=== PATIENT | female | born 1955 | race Caucasian/White ===

== ENCOUNTER → 2016-07-25 | Outpatient (CLI) | payer OTHER ==
[~2016-07-25] MED LIST: ISOVUE-370 76% 100ML VIAL (Q9967) As Ordered ONE
--- NOTE | 2016-07-26 09:20 | REP ---
CT CHEST WITHOUT CONTRAST: 07/25/2016. Comparison: 01/30/2016. Clinical history: A solitary pulmonary nodule. Technique: Noncontrast CT chest protocol followed. Coronal and sagittal reconstructions provided. Findings: Medial segment right middle lobe is a 8 mm nodule without calcification, it is unchanged. There is a small amount of curvilinear stranding with fibrosis around it in the right middle lobe. There are epicardial fat pads on both sides of the heart. Some minor linear fibrotic changes are also seen in the left lung base, all stable. No other pulmonary nodules are noted. Minor apical parenchymal scarring present. Mild cylindrical bronchiectatic changes in both lower lobes are seen and stable. There is no effusion, calcified pleural plaque or mass. The heart is not enlarged . There is no pericardial thickening or effusion. Small hiatal hernia noted. There were no pathologic sized nodes in the mediastinal or hilar regions. No axillary or supraclavicular mass. Aorta without aneurysm. Bone windows show sternum, manubrium, clavicle heads, humeral heads, scapulae, ribs and spine without acute fractures. There are marginal osteophytes mid thoracic spine and mild kyphosis all stable. Upper abdomen showed a small low density lesion in the spleen anteriorly, unchanged and most likely splenic hemangioma. The liver was not enlarged. That portion of gallbladder included does not show the gallstones seen on the previous study, excluded from the field of view today. Adrenal glands normal. Upper poles of the kidneys intact. Bowel loops unremarkable. Impression: 1. Stable 8 mm nodule medial segment right middle lobe and bibasilar linear fibrotic changes, apical parenchymal pleural fibrotic changes and cylindrical bronchiectasis in the lower lung zones. No other nodule, acute infiltrate, pleural effusion, pleural-based masses or calcifications. Stable chest CT. Signed by Etienne Echeverria MD 07/26/2016 09:25 A
== END ==
LOC: M RAD 16:58
PROVIDERS: ATTEND Internal Medicine Pulmonary Disease
DX: R91.1 Solitary pulmonary nodule (principal)

== ENCOUNTER 2016-11-28 09:06 | Emergency (ER) | payer OTHER ==
[~2016-11-28] VITALS: Ht 165.1 cm; Wt 77.6 kg
[2016-11-28] MEDS ORDERED: ALEV220C2 PO (09:32)
[2016-11-28] MEDS ORDERED: GABA-282 PO (10:12)
[2016-11-28 10:17] VITALS: BP 123/89
== END 2016-11-28 10:22 | disposition home or self-care (01) ==
LOC: M ED 09:47
DX: M54.32 Sciatica, left side (principal)

== ENCOUNTER → 2017-01-23 | Outpatient (CLI) | payer OTHER ==
[~2017-01-23] MED LIST changes: +ALEV220C2 PO; +GABA-282 PO; -ISOVUE-370 76% 100ML VIAL (Q9967) As Ordered ONE
[2017-01-23 08:47] LABS: BASO # 0.1 K/mm3 (0.0-0.2); BASO % 1.2 % (0.0-1.0); EOS # 0.3 K/mm3 (0.0-0.50); LARGE UNSTAINED CELL # 0.2 K/mm3 (0.0-0.4); LARGE UNSTAINED CELL % 2.3 % (0.0-4.0); LYMPH # 2.2 K/mm3 (1.5-4.5); LYMPH % 29.4 % (24.0-44.0); MEAN CORPUSCULAR HEMOGLOBIN 30.7 pg (27.0-33.0); MEAN CORPUSCULAR HGB CONC 34.2 g/dl (32.0-36.5); MEAN CORPUSCULAR VOLUME 89.9 fl (80.0-96.0); MONO # 0.5 K/mm3 (0.0-0.8); NEUTROPHILS # 3.8 K/mm3 (1.8-7.7); PLATELET COUNT, AUTOMATED 268 k/mm3 (150-450); RED CELL DISTRIBUTION WIDTH 13.3 % (11.5-14.5); WHITE BLOOD COUNT 6.8 K/mm3 (4.0-10.0)
[2017-01-23 09:03] LABS: ALBUMIN/GLOBULIN RATIO 1.43 (1.00-1.93); ALKALINE PHOSPHATASE 77 U/L (45-117); ALT/SGPT 25 U/L (12-78); ANION GAP 4 MEQ/L (8-16); AST/SGOT 18 U/L (15-37); BILIRUBIN,TOTAL 0.7 MG/DL (0.2-1.0); BLOOD UREA NITROGEN 17 MG/DL (7-18); CALCIUM LEVEL 8.8 MG/DL (8.8-10.2); CARBON DIOXIDE LEVEL 31 MEQ/L (21-32); CHLORIDE LEVEL 108 MEQ/L (98-107); CHOLESTEROL LEVEL 123 MG/DL (<200); CREATININE FOR GFR 0.72 MG/DL (0.55-1.02); GLOMERULAR FILTRATION RATE > 60.0 (>45); GLUCOSE, FASTING 86 MG/DL (80-110); POTASSIUM SERUM 4.1 MEQ/L (3.5-5.1); SODIUM LEVEL 143 MEQ/L (136-145); TOTAL PROTEIN 6.8 GM/DL (6.4-8.2); TRIGLYCERIDES LEVEL 58 MG/DL (<150)
== END ==
LOC: M LAB 07:53
PROVIDERS: ATTEND Nurse Practitioner Family
DX: Z00.00 Encounter for general adult medical examination without abnormal findings (principal); Z13.220 Encounter for screening for lipoid disorders

== ENCOUNTER 2017-07-21 15:10 | Emergency (ER) | payer OTHER ==
[2017-07-21] MEDS: GLUCAGON FOR INJ 1 MG VIAL (J1610) IV (16:29)
[2017-07-21] MEDS: NS 1,000 ML IV (16:30)
== END 2017-07-21 17:29 | disposition home or self-care (01) ==
LOC: M ED 15:10
DX: R07.0 Pain in throat (principal)
CPT/HCPCS: J1610

== ENCOUNTER → 2017-08-05 | Outpatient (CLI) | payer OTHER | LOC: M RAD 07:58 | DX: R91.1 Solitary pulmonary nodule (principal); K80.20 Calculus of gallbladder without cholecystitis without obstruction; J84.10 Pulmonary fibrosis, unspecified; E04.1 Nontoxic single thyroid nodule; D73.9 Disease of spleen, unspecified | CPT/HCPCS: 71250 ==

== ENCOUNTER → 2017-08-20 | Outpatient (CLI) | payer OTHER | LOC: M PLARAD 10:41 | DX: R91.1 Solitary pulmonary nodule (principal) | CPT/HCPCS: 78815 ==

== ENCOUNTER → 2017-09-03 | Outpatient (REF) | payer OTHER ==
[2017-09-03 12:12] LABS: FREE T4 0.84 NG/DL (0.76-1.46)
[2017-09-03 12:12] LABS: THYROID STIMULATING HORMONE 0.914 uIU/ML (0.358-3.740)
== END ==
LOC: M LABDRAW1 10:46
DX: E04.2 Nontoxic multinodular goiter (principal)
CPT/HCPCS: 84443

== ENCOUNTER → 2017-09-26 | Outpatient (CLI) | payer OTHER ==
[2017-09-26 17:39] LABS: URIC ACID 3.4 MG/DL (2.6-6.0)
[2017-09-26 17:39] LABS: RHEUMATOID FACTOR QUANT < 10.0 IU/ML (<15.0)
[2017-09-30 00:06] LABS: CYCLIC CITRULLINATED PEPTIDE 5 units (0-19)
== END ==
LOC: M LAB 15:48
DX: M19.042 Primary osteoarthritis, left hand (principal); M1A.0720 Idiopathic chronic gout, left ankle and foot, without tophus (tophi); M85.842 Other specified disorders of bone density and structure, left hand
CPT/HCPCS: 73130

== ENCOUNTER → 2017-11-21 | Outpatient (CLI) | payer OTHER | LOC: M RAD 08:02 | DX: R91.1 Solitary pulmonary nodule (principal) | CPT/HCPCS: 71250 ==

== ENCOUNTER → 2018-05-06 | Outpatient (CLI) | payer OTHER | LOC: M LAB 16:23 | DX: Z00.00 Encounter for general adult medical examination without abnormal findings (principal) ==

== ENCOUNTER → 2018-05-07 | Outpatient (CLI) | payer OTHER ==
[2018-05-07 08:59] LABS: ALBUMIN 4.1 GM/DL (3.2-5.2); ALBUMIN/GLOBULIN RATIO 1.46 (1.00-1.93); ALKALINE PHOSPHATASE 93 U/L (45-117); ALT/SGPT 29 U/L (12-78); ANION GAP 7 MEQ/L (8-16); AST/SGOT 23 U/L (7-37); BILIRUBIN,TOTAL 0.5 MG/DL (0.2-1.0); BLOOD UREA NITROGEN 18 MG/DL (7-18); CALCIUM LEVEL 8.7 MG/DL (8.8-10.2); CARBON DIOXIDE LEVEL 28 MEQ/L (21-32); CHLORIDE LEVEL 106 MEQ/L (98-107); CHOLESTEROL LEVEL 117 MG/DL (<200); CHOLESTEROL RISK RATIO 2.294 (<5); CREATININE FOR GFR 0.83 MG/DL (0.55-1.30); GLOMERULAR FILTRATION RATE > 60.0 (>45); GLUCOSE, FASTING 90 MG/DL (70-100); HDL CHOLESTEROL 51 MG/DL (>40); LDL CHOLESTEROL 59 MG/DL (<100); NON-HDL-C 66 MG/DL; SODIUM LEVEL 141 MEQ/L (136-145); TOTAL PROTEIN 6.9 GM/DL (6.4-8.2); TRIGLYCERIDES LEVEL 37 MG/DL (<150)
== END ==
LOC: M LAB 07:58
DX: Z00.00 Encounter for general adult medical examination without abnormal findings (principal); Z13.220 Encounter for screening for lipoid disorders
CPT/HCPCS: 80053

== ENCOUNTER → 2018-06-05 | Outpatient (CLI) | payer OTHER ==
[~2018-06-05] MED LIST changes: +CALC1TAB30 PO; -GABA-282 PO; +GABA-843 PO
--- NOTE | 2018-06-05 08:41 | REP ---
Clinical: Follow up solitary pulmonary nodule. Technique: Axial noncontrast images from the thoracic inlet to the upper abdomen with coronal and sagittal re-formations. Comparison: Examinations dated from 11/21/2017 through 01/30/2016 Findings: Moderate emphysematous changes are appreciated along with right middle lobe and lingular scarring and mild bronchiectasis. Solitary noncalcified pulmonary nodule in the right middle lobe measures 10 mm maximal diameter and appears relatively stable. The no further acute consolidation, significant nodule or mass lesion appreciated. No pleural effusion. No pneumothorax. Tracheobronchial tree is patent. Mediastinal and hilar adenopathy cannot be evaluated due to the lack of intravenous contrast material. The mediastinum is otherwise relatively normal with normal appearance to the thoracic aorta, pulmonary vasculature and heart/pericardium. Prominent bilateral axillary and mammary lymph nodes are identified bilaterally. Surrounding musculoskeletal structures without focal osseous abnormality. Limited upper abdomen demonstrates cholelithiasis along with normal bilateral adrenal glands. Impression: 1. 10 mm solitary noncalcified nodule in the right middle lobe similar to prior examinations. 2. Moderate emphysematous changes with mild bronchiectasis and scattered scarring. 3. No new, acute mediastinal or pleuroparenchymal process appreciated. 4. Cholelithiasis Electronically Signed by Ayush Gomes MD 06/05/2018 08:32 A
== END ==
LOC: M RAD 08:05
PROVIDERS: ATTEND Internal Medicine Pulmonary Disease
DX: R91.1 Solitary pulmonary nodule (principal); J43.9 Emphysema, unspecified; K80.20 Calculus of gallbladder without cholecystitis without obstruction

== ENCOUNTER → 2018-06-17 | Outpatient (CLI) | payer OTHER ==
--- NOTE | 2018-06-17 16:28 | REPMRS ---
Patient History The patient states she had a clinical breast exam in 06/28 Family history of breast cancer at age 50 or over in maternal grandmother. Digital Woman Screen Mammo: June 17, 2018 - Exam #: [id number] Bilateral CC and MLO view(s) were taken. Technologist: Imelda Washburn, Technologist Prior study comparison: April 17, 2017, digital woman screen mammo performed at [facility]. April 10, 2016, digital woman screen mammo performed at [facility]. March 02, 2015, digital woman screen mammo performed at [facility]. FINDINGS: There are scattered fibroglandular densities. There are stable benign breast nodules bilaterally. There is a moderate amount of residual fibroglandular tissue which is fairly symmetric. There is no interval development of dominant mass, architectural distortion, or clustered microcalcification typical of malignancy. There has been no change in the appearance of the mammogram from the prior studies. 3-D tomosynthesis shows no additional findings. Assessment: BI-RADS/ACR category 2 mammogram. Benign finding(s). Recommendation Routine screening mammogram of both breasts in 1 year (for women over age 40). This patient's Lifetime Breast Cancer RIsk is estimated at 10.0 %. This mammogram was interpreted with the aid of an FDA-approved computer-aided dectection system. Electronically Signed By: Uriah Michelle MD 06/17/18 [id number]
== END ==
LOC: M WHC 13:41
PROVIDERS: ATTEND Nurse Practitioner Family
DX: Z12.31 Encounter for screening mammogram for malignant neoplasm of breast (principal)

== ENCOUNTER → 2018-06-17 | Outpatient (REF) | payer OTHER ==
[2018-06-20 16:26] LABS: HPV HYBRID CAPTURE II Negative (Negative)
== END ==
LOC: M SFHCWAGY 14:58
PROVIDERS: ATTEND Nurse Practitioner Women's Health
DX: Z12.4 Encounter for screening for malignant neoplasm of cervix (principal)

== ENCOUNTER → 2019-06-11 | Outpatient (CLI) | payer OTHER ==
[2019-06-11 11:06] LABS: BASO # 0.1 10^3/uL (0.0-0.2); BASO % 0.7 % (0.0-1.0); EOS # 0.3 10^3/uL (0.0-0.5); EOS % 3.1 % (0.0-3.0); HEMATOCRIT 37.4 % (36.0-47.0); HEMOGLOBIN 11.4 g/dl (12.0-15.5); LYMPH # 3.2 10^3/uL (1.5-5.0); LYMPH % 38.7 % (24.0-44.0); MEAN CORPUSCULAR HEMOGLOBIN 26.8 pg (27.0-33.0); MEAN CORPUSCULAR HGB CONC 30.5 g/dl (32.0-36.5); MONO # 0.7 10^3/uL (0.0-0.8); MONO % 8.7 % (0.0-5.0); NEUTROPHILS % 48.4 % (36.0-66.0); PLATELET COUNT, AUTOMATED 260 10^3/uL (150-450); RED BLOOD COUNT 4.25 10^6/uL (4.00-5.40); WHITE BLOOD COUNT 8.2 10^3/uL (4.0-10.0)
[2019-06-11 11:32] LABS: ALBUMIN 3.8 GM/DL (3.2-5.2); ALT/SGPT 26 U/L (12-78); BILIRUBIN,TOTAL 0.6 MG/DL (0.2-1.0); BLOOD UREA NITROGEN 17 MG/DL (7-18); CALCIUM LEVEL 8.9 MG/DL (8.8-10.2); CARBON DIOXIDE LEVEL 28 MEQ/L (21-32); CHLORIDE LEVEL 109 MEQ/L (98-107); CHOLESTEROL LEVEL 126 MG/DL (<200); CHOLESTEROL RISK RATIO 2.333 (<5); GLOMERULAR FILTRATION RATE > 60.0 (>45); GLUCOSE, FASTING 78 MG/DL (70-100); HDL CHOLESTEROL 54 MG/DL (>40); LDL CHOLESTEROL 56 MG/DL (<100); NON-HDL-C 72 MG/DL; POTASSIUM SERUM 4.3 MEQ/L (3.5-5.1); SODIUM LEVEL 143 MEQ/L (136-145); TOTAL PROTEIN 6.8 GM/DL (6.4-8.2); TRIGLYCERIDES LEVEL 78 MG/DL (<150)
== END ==
LOC: M PLALAB 08:08
PROVIDERS: ATTEND Nurse Practitioner Family
DX: Z00.00 Encounter for general adult medical examination without abnormal findings (principal); Z13.220 Encounter for screening for lipoid disorders; E55.9 Vitamin D deficiency, unspecified

== ENCOUNTER → 2019-06-22 | Outpatient (CLI) | payer OTHER ==
--- NOTE | 2019-06-22 09:18 | REPMRS ---
Patient History The patient states she had a clinical breast exam in 2019. Family history of breast cancer at age 50 or over in maternal grandmother. Digital Woman Screen Mammo: June 22, 2019 - Exam #: [id number] Bilateral CC and MLO view(s) were taken. Technologist: Francisca Hernandez, Technologist Prior study comparison: June 17, 2018, bilateral digital woman screen mammo performed at [facility]. April 17, 2017, digital woman screen mammo performed at [facility]. April 10, 2016, digital woman screen mammo performed at [facility]. FINDINGS: The breast tissue is heterogeneously dense. This may lower the sensitivity of mammography. There is a stable well-circumscribed nodule projecting in the upper outer quadrant of each breast, one on each side. These are unchanged from multiple prior studies. There is a moderate amount of heterogeneously dense fibroglandular tissue which is fairly symmetric. There is no interval development of dominant mass, architectural distortion, or grouped microcalcification typical of malignancy. There has been no change in the appearance of the mammogram from the prior studies. 3-D tomosynthesis shows no additional findings. Assessment: BI-RADS/ACR category 2 mammogram. Benign Findings. Recommendation Routine screening mammogram of both breasts in 1 year (for women over age 40). This patient's Lifetime Breast Cancer RIsk is estimated at 9.6 %. This mammogram was interpreted with the aid of an FDA-approved computer-aided dectection system. Electronically Signed By: Uriah Michelle MD 06/22/19 [id number]
== END ==
LOC: M WHC 08:33
PROVIDERS: ATTEND Nurse Practitioner Women's Health
DX: Z12.31 Encounter for screening mammogram for malignant neoplasm of breast (principal); Z80.3 Family history of malignant neoplasm of breast; N63.11 Unspecified lump in the right breast, upper outer quadrant; N63.22 Unspecified lump in the left breast, upper inner quadrant

== ENCOUNTER → 2019-07-15 | Outpatient (CLI) | payer OTHER ==
--- NOTE | 2019-07-22 14:19 | DEXA ---
AP SPINE L1 - L4 1.059 -1.1 0.5 LT FEMUR TOTAL 0.914 -0.7 0.4 LT NECK 0.886 -1.1 0.3 RT FEMUR TOTAL 0.870 -1.1 0.1 RT NECK 0.910 -0.9 0.5 TOTAL BODY TOTAL OTHER COMMENTS: There is low bone density of the spine and hips. The density of the spine is increased 0.9% since 01/19/2014. The density of the left hip has decreased 2.1% since 01/19/2014. The density of the right hip has decreased 4.6% since 01/19/2014. FOLLOW-UP: Recommendation for the next bone density exam: 2 years. SARAI
== END ==
LOC: M WHC 07:59
PROVIDERS: ATTEND Nurse Practitioner Family
DX: M85.851 Other specified disorders of bone density and structure, right thigh (principal); M85.852 Other specified disorders of bone density and structure, left thigh; M85.88 Other specified disorders of bone density and structure, other site

== ENCOUNTER → 2020-06-27 | Outpatient (CLI) | payer MEDICARE ==
[~2020-06-27] MED LIST changes: +GABA-282 PO; -GABA-843 PO
--- NOTE | 2020-06-27 09:21 | REPMRS ---
Patient History The patient states she has not had a clinical breast exam in over a year. Family history of breast cancer at age 50 or over in maternal grandmother. 3D TOMOSYNTHESIS WAS PERFORMED. [facility]%. Volpara breast density b. Digital Woman Screen Mammo: June 27, 2020 - Exam #: [id number] Bilateral CC and MLO view(s) were taken. Technologist: Francisca Hernandez, Technologist Prior study comparison: June 22, 2019, bilateral digital woman screen mammo performed at [facility]. June 17, 2018, bilateral digital woman screen mammo performed at [facility]. FINDINGS: There are scattered fibroglandular densities. There is a fairly symmetric fibroglandular pattern in both breasts. There has been no interval development of masses, areas of architectural distortion or clusters of microcalcifications typical of malignancy.[A nodule in the lateral aspect of each breast is stable. No significant changes when compared with prior studies. Assessment: BI-RADS/ACR category 2 mammogram. Benign Findings. Recommendation Routine screening mammogram of both breasts in 1 year (for women over age 40). This mammogram was interpreted with the aid of an FDA-approved computer-aided dectection system. Electronically Signed By: Chung White MD 06/27/20 [id number]
== END ==
LOC: M WHC 08:33
PROVIDERS: ATTEND Nurse Practitioner Women's Health
DX: Z12.31 Encounter for screening mammogram for malignant neoplasm of breast (principal)

== ENCOUNTER 2020-10-07 15:05 | Emergency (ER) | payer OTHER, MEDICARE ==
[~2020-10-07] VITALS: Ht 165.1 cm; Wt 81.8 kg
--- NOTE | 2020-10-07 15:28 | REP ---
INDICATION: Fall injury. COMPARISON: None. TECHNIQUE: Helical scanning is acquired. 5 mm axial images were reformatted. Coronal MPR images were generated. 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 Bone window settings show a small air-fluid level in the left maxillary sinus and partial opacification of the left ethmoid air cells. The bony calvarium is intact. No skull fracture is seen. There is a scalp hematoma in the left side of the vertex superiorly. No intraorbital abnormality is seen. On soft tissue window settings, there is mild generalized volume loss. Lateral, 3rd, and 4th ventricles are normal in size and position. Minimal small vessel changes are seen in the periventricular white matter of the frontal lobes. There is no evidence of intracranial hemorrhage. No infarct, extra-axial fluid collection, or midline shift is seen. No intracranial mass lesion is observed. IMPRESSION: Minimal generalized volume loss and small vessel changes. Left vertex scalp hematoma. No skull fracture or intracranial injury. Mild paranasal sinus changes.. <Electronically signed by Uriah Michelle > 10/07/20 [id number]
--- NOTE | 2020-10-07 15:35 | REP ---
INDICATION: Fall injury. COMPARISON: CT chest 07/25/2016. TECHNIQUE: CT cervical spine performed in the axial plane, with sagittal and coronal reconstruction images performed. FINDINGS: There is no acute compression fracture or malalignment. There is no prevertebral soft tissue swelling. There is normal cervical lordosis. There is no abnormal density in the spinal canal.There is mild spurring of C4 through C7. There is mild disc space narrowing and subchondral sclerosis at C3-4 through C6-7. Bilateral thyroid nodules are present which appear to have mildly increased in size compared to a prior CT of the chest 07/25/2016. IMPRESSION: No evidence of acute fracture or dislocation.Mild diffuse degenerative changes. Bilateral thyroid nodules appear to have mildly increased in size since prior CT chest 07/25/2016. Recommend follow-up nonemergent thyroid ultrasound. <Electronically signed by Chung White > 10/07/20 [id number]
[2020-10-07 15:40] LABS: HEMATOCRIT 36.4 % (36.0-47.0); MEAN CORPUSCULAR HEMOGLOBIN 29.9 pg (27.0-33.0); MEAN CORPUSCULAR VOLUME 90.8 fl (80.0-96.0); PLATELET COUNT, AUTOMATED 232 10^3/uL (150-450); RED BLOOD COUNT 4.01 10^6/uL (4.00-5.40); WHITE BLOOD COUNT 9.8 10^3/uL (4.0-10.0)
[2020-10-07] MEDS ORDERED: OMEP-221 PO (15:42)
[2020-10-07 15:55] LABS: BLOOD UREA NITROGEN 18 MG/DL (7-18); CALCIUM LEVEL 8.6 MG/DL (8.8-10.2); CARBON DIOXIDE LEVEL 27 MEQ/L (21-32); CHLORIDE LEVEL 112 MEQ/L (98-107); CREATININE FOR GFR 0.78 MG/DL (0.55-1.30); GLOMERULAR FILTRATION RATE > 60.0 (>45); GLUCOSE, FASTING 104 MG/DL (70-100); POTASSIUM SERUM 3.6 MEQ/L (3.5-5.1); SODIUM LEVEL 143 MEQ/L (136-145)
[2020-10-07] MEDS ORDERED: LIDOCAINE 2% W/EPINEPHRINE 20ML VIAL **PRES FREE INJ ONE (16:35)
[2020-10-07 17:10] VITALS: BP 171/99
--- NOTE | 2020-10-08 07:15 | ED PDOC ---
Post-Departure Follow-Up ct c spine faxed to arnaldo quiroz for fu Mack Whalen MD October 08, 2020 07:15
== END 2020-10-07 17:21 | disposition home or self-care (01) ==
LOC: EDBD 15:05 → M ED 15:05
DX: S01.01XA Laceration without foreign body of scalp, initial encounter (principal); S00.03XA Contusion of scalp, initial encounter; S06.0X1A Concussion with loss of consciousness of 30 minutes or less, initial encounter; W19.XXXA Unspecified fall, initial encounter; Y92.89 Other specified places as the place of occurrence of the external cause; Y93.9 Activity, unspecified; Y99.0 Civilian activity done for income or pay; Z90.49 Acquired absence of other specified parts of digestive tract; Z93.3 Colostomy status; M54.5 Low back pain; E04.1 Nontoxic single thyroid nodule; Z79.899 Other long term (current) drug therapy

== ENCOUNTER → 2021-01-11 | Outpatient (CLI) | payer MEDICARE, OTHER ==
[~2021-01-11] MED LIST changes: +OMEP-221 PO
--- NOTE | 2021-01-11 16:17 | REP ---
INDICATION: PAIN IN RIGHT FOOT. COMPARISON: None. TECHNIQUE: Two views FINDINGS: There is a large retrocalcaneal heel spur. There is no fracture or destructive osseous lesion. IMPRESSION: Chronic changes as described above. <Electronically signed by Soy Smith > 01/11/21 [id number]
--- NOTE | 2021-01-11 16:40 | REP ---
INDICATION: PAIN IN RIGHT FOOT. COMPARISON: None. TECHNIQUE: AP and frogleg lateral views of the left hip were obtained. FINDINGS: There is no evidence of arthropathy of the left hip. There is no evidence of subluxation or dislocation of the femoral head. There is no evidence of fracture of the proximal femur. The adjacent bony pelvis is unremarkable. There are no soft tissue abnormality. IMPRESSION: Normal left hip. <Electronically signed by Carlos Medrano > 01/11/21 [id number]
== END ==
LOC: M PLAIMG 15:33
PROVIDERS: ATTEND Nurse Practitioner Family
DX: M77.31 Calcaneal spur, right foot (principal); M79.671 Pain in right foot; M25.552 Pain in left hip

== ENCOUNTER 2021-01-30 12:15 | Outpatient (RCR) | payer MEDICARE | END 2021-02-07 | LOC: M PT 12:15 | PROVIDERS: ATTEND Nurse Practitioner Family | DX: M25.552 Pain in left hip (principal) ==

== ENCOUNTER 2021-03-02 15:15 | Outpatient (RCR) | payer MEDICARE | END 2021-03-09 | LOC: M PT 15:15 | PROVIDERS: ATTEND Nurse Practitioner Family | DX: M25.552 Pain in left hip (principal) ==

== ENCOUNTER 2021-05-20 12:30 | Emergency (ER) | payer MEDICARE ==
[~2021-05-20] VITALS: Ht 165.1 cm; Wt 79.5 kg
[2021-05-20 12:30] VITALS: BP 141/76
[~2021-05-20 12:30] MED LIST changes: -OMEP-221 PO; +OMEP40CA5 PO
[2021-08-03] MEDS ORDERED: FIBE625T PO (16:06)
[2021-08-03] MEDS ORDERED: NAPR220C14 PO (16:06)
== END 2021-05-20 15:12 | disposition left against medical advice (07) ==
LOC: M ED 12:30
DX: Z53.21 Procedure and treatment not carried out due to patient leaving prior to being seen by health care provider (principal)

== ENCOUNTER → 2021-07-17 | Outpatient (CLI) | payer MEDICARE, SELFPAY | LOC: M PLAIMG 08:04 | PROVIDERS: ATTEND Orthopaedic Surgery | DX: M51.36 Other intervertebral disc degeneration, lumbar region (principal); M51.26 Other intervertebral disc displacement, lumbar region ==

== ENCOUNTER → 2021-07-19 | Outpatient (CLI) | payer MEDICARE, SELFPAY | LOC: M WHC 11:28 | PROVIDERS: ATTEND Nurse Practitioner Family | DX: N64.4 Mastodynia (principal); N60.01 Solitary cyst of right breast; N63.10 Unspecified lump in the right breast, unspecified quadrant | CPT/HCPCS: 76642; 77066; G0279 ==

== ENCOUNTER → 2021-08-03 | Outpatient (CLI) | payer MEDICARE ==
[~2021-08-03] MED LIST changes: +FIBE625T PO; +NAPR220C14 PO
[2021-08-03 15:41] VITALS: BP 120/70
== END ==
LOC: M WHCPRO 13:58
PROVIDERS: ATTEND Nurse Practitioner Family
DX: N60.21 Fibroadenosis of right breast (principal); N63.41 Unspecified lump in right breast, subareolar

== ENCOUNTER → 2021-08-22 | Outpatient (CLI) | payer MEDICARE ==
[2021-08-22 15:36] LABS: BASO # 0.1 10^3/uL (0.0-0.2); BASO % 0.6 % (0.0-1.0); EOS # 0.3 10^3/uL (0.0-0.5); HEMATOCRIT 39.4 % (36.0-47.0); HEMOGLOBIN 13.2 g/dl (12.0-15.5); LYMPH # 4.4 10^3/uL (1.5-5.0); LYMPH % 45.3 % (24.0-44.0); MEAN CORPUSCULAR HEMOGLOBIN 30.1 pg (27.0-33.0); MEAN CORPUSCULAR HGB CONC 33.5 g/dl (32.0-36.5); MEAN CORPUSCULAR VOLUME 89.7 fl (80.0-96.0); MONO # 0.7 10^3/uL (0.0-0.8); NEUTROPHILS # 4.3 10^3/uL (1.5-8.5); NEUTROPHILS % 43.9 % (36.0-66.0); PLATELET COUNT, AUTOMATED 255 10^3/uL (150-450); RED BLOOD COUNT 4.39 10^6/uL (4.00-5.40); WHITE BLOOD COUNT 9.8 10^3/uL (4.0-10.0)
[2021-08-22 16:02] LABS: ALBUMIN 4.1 GM/DL (3.2-5.2); ALT/SGPT 29 U/L (12-78); BILIRUBIN,TOTAL 0.6 MG/DL (0.2-1.0); BLOOD UREA NITROGEN 19 MG/DL (7-18); CALCIUM LEVEL 8.7 MG/DL (8.8-10.2); CARBON DIOXIDE LEVEL 29 MEQ/L (21-32); CHLORIDE LEVEL 112 MEQ/L (98-107); CHOLESTEROL LEVEL 120 MG/DL (<200); CHOLESTEROL RISK RATIO 2.068 (<5); CREATININE FOR GFR 0.79 MG/DL (0.55-1.30); GLOMERULAR FILTRATION RATE > 60.0 (>45); GLUCOSE, FASTING 94 MG/DL (70-100); HDL CHOLESTEROL 58 MG/DL (>40); LDL CHOLESTEROL 46 MG/DL (<100); NON-HDL-C 62 MG/DL; SODIUM LEVEL 144 MEQ/L (136-145); TRIGLYCERIDES LEVEL 78 MG/DL (<150)
[2021-08-22 16:11] LABS: TOTAL 25(OH) VITAMIN D 29.3 NG/ML (30.0-100.0)
[2021-08-22 16:56] LABS: HEMOGLOBIN A1c 5.2 %
== END ==
LOC: M PLALAB 12:20
PROVIDERS: ATTEND Nurse Practitioner Family
DX: E55.9 Vitamin D deficiency, unspecified (principal); Z13.220 Encounter for screening for lipoid disorders; Z13.228 Encounter for screening for other metabolic disorders; Z79.899 Other long term (current) drug therapy

== ENCOUNTER → 2021-08-25 | Outpatient (CLI) | payer MEDICARE ==
[2021-08-25 12:53] LABS: PLATELET COUNT, AUTOMATED 247 10^3/uL (150-450)
[2021-08-25 13:08] LABS: INR 1.06; PROTHROMBIN TIME 14.2 SECONDS (12.7-14.5)
[2021-08-25 13:09] LABS: PARTIAL THROMBOPLASTIN TIME 31.4 SECONDS (25.9-37.0)
== END ==
LOC: M LAB 11:42
PROVIDERS: ATTEND Physical Medicine & Rehabilitation
DX: M48.061 Spinal stenosis, lumbar region without neurogenic claudication (principal); Z79.01 Long term (current) use of anticoagulants

== ENCOUNTER → 2022-09-01 | Outpatient (CLI) | payer MEDICARE ==
[2022-09-01 09:31] LABS: BASO # 0.1 10^3/uL (0.0-0.2); BASO % 0.7 % (0.0-1.0); EOS # 0.2 10^3/uL (0.0-0.5); EOS % 2.3 % (0.0-3.0); HEMATOCRIT 41.1 % (36.0-47.0); HEMOGLOBIN 13.2 g/dl (12.0-15.5); LYMPH # 4.8 10^3/uL (1.5-5.0); LYMPH % 48.3 % (24.0-44.0); MEAN CORPUSCULAR HEMOGLOBIN 29.3 pg (27.0-33.0); MEAN CORPUSCULAR HGB CONC 32.1 g/dl (32.0-36.5); MEAN CORPUSCULAR VOLUME 91.3 fl (80.0-96.0); MONO # 0.7 10^3/uL (0.0-0.8); MONO % 7.4 % (2.0-8.0); NEUTROPHILS # 4.1 10^3/uL (1.5-8.5); NEUTROPHILS % 41.1 % (36.0-66.0); PLATELET COUNT, AUTOMATED 230 10^3/uL (150-450); WHITE BLOOD COUNT 9.9 10^3/uL (4.0-10.0)
[2022-09-01 10:24] LABS: ALBUMIN 3.9 G/DL (3.2-5.2); ALKALINE PHOSPHATASE 97 U/L (46-116); ALT/SGPT 24 U/L (7.0-40); AST/SGOT 19 U/L (<34); BILIRUBIN,TOTAL 0.7 MG/DL (0.3-1.2); BLOOD UREA NITROGEN 24 MG/DL (9-23); CALCIUM LEVEL 8.9 MG/DL (8.3-10.6); CARBON DIOXIDE LEVEL 30 MMOL/L (20-31); CHLORIDE LEVEL 107 MMOL/L (98-107); CHOLESTEROL LEVEL 114 MG/DL (<200); CHOLESTEROL RISK RATIO 2.17 (<5); CREATININE FOR GFR 0.69 MG/DL (0.55-1.30); GLOMERULAR FILTRATION RATE > 60.0 (>45); GLUCOSE, FASTING 82 MG/DL (74-106); HDL CHOLESTEROL 52.3 MG/DL (>40); LDL CHOLESTEROL 49.9 MG/DL (<100); NON-HDL-C 61.7 MG/DL; POTASSIUM SERUM 4.2 MMOL/L (3.5-5.1); SODIUM LEVEL 142 MMOL/L (136-145); TOTAL 25(OH) VITAMIN D 38.6 NG/ML (20.0-100.0); TOTAL PROTEIN 6.5 G/DL (5.7-8.2); TRIGLYCERIDES LEVEL 59 MG/DL (<150)
== END ==
LOC: M LAB 08:49
PROVIDERS: ATTEND Nurse Practitioner Family
DX: Z00.00 Encounter for general adult medical examination without abnormal findings (principal); E55.9 Vitamin D deficiency, unspecified; Z13.220 Encounter for screening for lipoid disorders

== ENCOUNTER → 2022-09-03 | Outpatient (CLI) | payer MEDICARE | LOC: M WHC 14:13 | PROVIDERS: ATTEND Nurse Practitioner Family | DX: Z12.31 Encounter for screening mammogram for malignant neoplasm of breast (principal); N63.10 Unspecified lump in the right breast, unspecified quadrant; N63.20 Unspecified lump in the left breast, unspecified quadrant; M85.89 Other specified disorders of bone density and structure, multiple sites ==

== ENCOUNTER 2022-10-28 14:35 | Emergency (ER) | payer MEDICARE ==
[~2022-10-28] VITALS: Ht 165.1 cm; Wt 82.4 kg
[2022-10-28 14:36] VITALS: BP 144/90
== END 2022-10-28 15:15 | disposition home or self-care (01) ==
LOC: M ED 14:35
DX: K22.2 Esophageal obstruction (principal); K21.9 Gastro-esophageal reflux disease without esophagitis; Z79.899 Other long term (current) drug therapy

== ENCOUNTER 2023-02-07 13:19 | Emergency (ER) | payer MEDICARE ==
[~2023-02-07] VITALS: Ht 165.1 cm; Wt 82.2 kg
[2023-02-07 15:47] VITALS: BP 166/80; TEMP 98.3; O2SAT 98
== END 2023-02-07 15:59 | disposition home or self-care (01) ==
LOC: M ED 13:19
DX: T18.128A Food in esophagus causing other injury, initial encounter (principal); R13.10 Dysphagia, unspecified

== ENCOUNTER 2023-02-07 23:40 | Emergency (ER) | payer MEDICARE ==
[2023-02-07 23:41] VITALS: BP 162/92; TEMP 97.3; O2SAT 99
== END 2023-02-08 04:57 | disposition left against medical advice (07) ==
LOC: M ED 23:40
DX: Z53.21 Procedure and treatment not carried out due to patient leaving prior to being seen by health care provider (principal)

== ENCOUNTER → 2023-04-10 | Outpatient (CLI) | payer MEDICARE ==
[~2023-04-10] MED LIST changes: +E-Z-GAS II EFFERVESCENT PACKET (SODIUM BICARB./CITRIC ACID/SIMETHICONE) As Ordered ONE; +E-Z-HD 98% w/w 340GM SUSP BTL As Ordered ONE; +E-Z-PAQUE 96% w/w SUSP 176GM BTL As Ordered ONE
== END ==
LOC: M RAD 09:07
PROVIDERS: ATTEND Physician Assistant Medical
DX: R13.10 Dysphagia, unspecified (principal); K21.9 Gastro-esophageal reflux disease without esophagitis; K44.9 Diaphragmatic hernia without obstruction or gangrene; K22.89 Other specified disease of esophagus

== ENCOUNTER 2023-05-06 11:55 | Day surgery (SDC) | payer MEDICARE ==
[~2023-05-06] VITALS: Ht 165.1 cm; Wt 82.6 kg
[~2023-05-06 11:55] MED LIST changes: +ALEV220T22 PO; +CETI-24 PO; -E-Z-GAS II EFFERVESCENT PACKET (SODIUM BICARB./CITRIC ACID/SIMETHICONE) As Ordered ONE; -E-Z-HD 98% w/w 340GM SUSP BTL As Ordered ONE; -E-Z-PAQUE 96% w/w SUSP 176GM BTL As Ordered ONE; +NS 1,000 ML IV ONE
[2023-05-06] MEDS ORDERED: propofoL 200 MG/20 ML VIAL As Ordered ONE ×2 (13:15→13:16)
[2023-05-06] MEDS ORDERED: LIDOCAINE 2% 100MG/5ML SDV (FOR ANES.) As Ordered ONE (13:16)
[2023-05-06] MEDS ORDERED: fentaNYL 100 MCG/2 ML INJECTION As Ordered ONE (13:48)
[2023-05-06 14:10] VITALS: TEMP 99.8
[2023-05-06 14:25] VITALS: BP 156/82; O2SAT 96
== END 2023-05-06 14:42 | disposition home or self-care (01) ==
LOC: M OPP 11:55
PROVIDERS: ATTEND Internal Medicine Gastroenterology
DX: R93.3 Abnormal findings on diagnostic imaging of other parts of digestive tract (principal); R13.10 Dysphagia, unspecified; K22.2 Esophageal obstruction; K20.90 Esophagitis, unspecified without bleeding; Z79.899 Other long term (current) drug therapy
CPT/HCPCS: 43239; 43249; 88305; J3010

== ENCOUNTER → 2023-05-13 | Outpatient (CLI) | payer MEDICARE ==
[~2023-05-13] MED LIST changes: +BARIUM SULFATE 700 MG TABLET (E-Z-DISK) As Ordered ONE; +E-Z-PAQUE 96% w/w SUSP 176GM BTL As Ordered ONE; -NS 1,000 ML IV ONE; +VARIBAR NECTAR 40% w/v 240ML SUSP BTL As Ordered ONE; +VARIBAR PUDDING 40% w/v 230ML TUBE As Ordered ONE
== END ==
LOC: M RAD 10:40
PROVIDERS: ATTEND Physician Assistant Medical
DX: R13.10 Dysphagia, unspecified (principal); R93.3 Abnormal findings on diagnostic imaging of other parts of digestive tract

== ENCOUNTER → 2023-09-02 | Outpatient (CLI) | payer MEDICARE, MEDICAID ==
[~2023-09-02] MED LIST changes: -BARIUM SULFATE 700 MG TABLET (E-Z-DISK) As Ordered ONE; -E-Z-PAQUE 96% w/w SUSP 176GM BTL As Ordered ONE; -VARIBAR NECTAR 40% w/v 240ML SUSP BTL As Ordered ONE; -VARIBAR PUDDING 40% w/v 230ML TUBE As Ordered ONE
[2023-09-02 14:51] LABS: BASO # 0.1 10^3/uL (0.0-0.2); BASO % 0.7 % (0.0-1.0); EOS # 0.3 10^3/uL (0.0-0.5); EOS % 2.5 % (0.0-3.0); HEMATOCRIT 41.5 % (36.0-47.0); HEMOGLOBIN 13.4 g/dl (12.0-15.5); LYMPH # 6.3 10^3/uL (1.5-5.0); LYMPH % 51.5 % (24.0-44.0); MEAN CORPUSCULAR HEMOGLOBIN 30.2 pg (27.0-33.0); MEAN CORPUSCULAR HGB CONC 32.3 g/dl (32.0-36.5); MEAN CORPUSCULAR VOLUME 93.7 fl (80.0-96.0); MONO % 8.2 % (2.0-8.0); NEUTROPHILS # 4.5 10^3/uL (1.5-8.5); NEUTROPHILS % 36.4 % (36.0-66.0); PLATELET COUNT, AUTOMATED 279 10^3/uL (150-450); RED BLOOD COUNT 4.43 10^6/uL (4.00-5.40); WHITE BLOOD COUNT 12.3 10^3/uL (4.0-10.0)
[2023-09-02 15:20] LABS: ALBUMIN 3.7 G/DL (3.2-5.2); ALKALINE PHOSPHATASE 90 U/L (46-116); ALT/SGPT 31 U/L (7.0-40); AST/SGOT 22 U/L (<34); BILIRUBIN,TOTAL 0.3 MG/DL (0.3-1.2); BLOOD UREA NITROGEN 22 MG/DL (9-23); CALCIUM LEVEL 8.9 MG/DL (8.3-10.6); CARBON DIOXIDE LEVEL 29 MMOL/L (20-31); CHLORIDE LEVEL 109 MMOL/L (98-107); CHOLESTEROL LEVEL 110 MG/DL (<200); CREATININE FOR GFR 0.77 MG/DL (0.55-1.30); FREE T4 1.01 NG/DL (0.89-1.76); GLOMERULAR FILTRATION RATE > 60.0 (>45); GLUCOSE, FASTING 74 MG/DL (74-106); HDL CHOLESTEROL 34.3 MG/DL (>40); LDL CHOLESTEROL 52.3 MG/DL (<100); NON-HDL-C 75.7 MG/DL; POTASSIUM SERUM 4.3 MMOL/L (3.5-5.1); SODIUM LEVEL 142 MMOL/L (136-145); THYROID STIMULATING HORMONE 0.322 uIU/ML (0.55-4.78); TOTAL PROTEIN 6.5 G/DL (5.7-8.2); TRIGLYCERIDES LEVEL 117 MG/DL (<150)
[2023-09-02 15:21] LABS: TOTAL 25(OH) VITAMIN D 54.6 NG/ML (20.0-100.0)
== END ==
LOC: M PLALAB 11:18
PROVIDERS: ATTEND Nurse Practitioner Family
DX: M51.36 Other intervertebral disc degeneration, lumbar region (principal); N20.0 Calculus of kidney; E55.9 Vitamin D deficiency, unspecified; R23.2 Flushing; M54.42 Lumbago with sciatica, left side; Z13.220 Encounter for screening for lipoid disorders; Z13.1 Encounter for screening for diabetes mellitus; Z79.899 Other long term (current) drug therapy

== ENCOUNTER → 2023-09-05 | Outpatient (CLI) | payer MEDICARE, MEDICAID | LOC: M WHC 11:05 | PROVIDERS: ATTEND Nurse Practitioner Family | DX: Z12.31 Encounter for screening mammogram for malignant neoplasm of breast (principal); R92.333 Mammographic heterogeneous density, bilateral breasts ==

== ENCOUNTER → 2023-10-11 | Outpatient (CLI) | payer MEDICARE, MEDICAID | LOC: M RAD 15:22 | PROVIDERS: ATTEND Nurse Practitioner Family | DX: E04.2 Nontoxic multinodular goiter (principal) ==

== ENCOUNTER → 2024-03-27 | Outpatient (CLI) | payer MEDICARE ==
[~2024-03-27] MED LIST changes: +GABA-1172 PO; -GABA-282 PO
[2024-03-27 09:36] LABS: BASO # 0.1 10^3/uL (0.0-0.2); BASO % 0.5 % (0.0-1.0); EOS # 0.3 10^3/uL (0.0-0.5); EOS % 2.5 % (0.0-3.0); HEMATOCRIT 40.2 % (36.0-47.0); HEMOGLOBIN 13.5 g/dl (12.0-15.5); LYMPH # 7.1 10^3/uL (1.5-5.0); MEAN CORPUSCULAR HEMOGLOBIN 30.8 pg (27.0-33.0); MEAN CORPUSCULAR HGB CONC 33.6 g/dl (32.0-36.5); MEAN CORPUSCULAR VOLUME 91.6 fl (80.0-96.0); MONO # 0.7 10^3/uL (0.0-0.8); MONO % 5.6 % (2.0-8.0); NEUTROPHILS # 3.8 10^3/uL (1.5-8.5); NEUTROPHILS % 32.1 % (36.0-66.0); PLATELET COUNT, AUTOMATED 211 10^3/uL (150-450); RED BLOOD COUNT 4.39 10^6/uL (4.00-5.40)
[2024-03-27 10:06] LABS: ALBUMIN 3.7 G/DL (3.2-5.2); ALKALINE PHOSPHATASE 90 U/L (46-116); ALT/SGPT 22 U/L (7.0-40); AST/SGOT 15 U/L (<34); BILIRUBIN,TOTAL 0.7 MG/DL (0.3-1.2); BLOOD UREA NITROGEN 21 MG/DL (9-23); CALCIUM LEVEL 9.4 MG/DL (8.3-10.6); CARBON DIOXIDE LEVEL 29 MMOL/L (20-31); CHLORIDE LEVEL 110 MMOL/L (98-107); CHOLESTEROL LEVEL 115 MG/DL (<200); CHOLESTEROL RISK RATIO 2.83 (<5); CREATININE FOR GFR 0.83 MG/DL (0.55-1.30); GLOMERULAR FILTRATION RATE > 60.0 (>45); GLUCOSE, FASTING 89 MG/DL (74-106); HDL CHOLESTEROL 40.6 MG/DL (>40); LDL CHOLESTEROL 62.2 MG/DL (<100); NON-HDL-C 74.4 MG/DL; POTASSIUM SERUM 4.1 MMOL/L (3.5-5.1); SODIUM LEVEL 141 MMOL/L (136-145); TOTAL PROTEIN 6.8 G/DL (5.7-8.2); TRIGLYCERIDES LEVEL 61 MG/DL (<150)
[2024-03-27 10:07] LABS: THYROID STIMULATING HORMONE 0.346 uIU/ML (0.55-4.78)
== END ==
LOC: M LAB 08:26
PROVIDERS: ATTEND Nurse Practitioner Family
DX: E55.9 Vitamin D deficiency, unspecified (principal); E04.1 Nontoxic single thyroid nodule; D72.829 Elevated white blood cell count, unspecified; Z13.220 Encounter for screening for lipoid disorders; Z79.899 Other long term (current) drug therapy

== ENCOUNTER → 2024-09-21 | Outpatient (REF) | payer MEDICARE, MEDICAID ==
[2024-09-22 11:03] LABS: BASO # 0.1 10^3/uL (0.0-0.2); BASO % 0.5 % (0.0-1.0); EOS # 0.2 10^3/uL (0.0-0.5); EOS % 1.6 % (0.0-3.0); HEMATOCRIT 41.1 % (36.0-47.0); HEMOGLOBIN 13.5 g/dl (12.0-15.5); LYMPH # 7.7 10^3/uL (1.5-5.0); LYMPH % 56.5 % (24.0-44.0); MEAN CORPUSCULAR HEMOGLOBIN 28.8 pg (27.0-33.0); MEAN CORPUSCULAR HGB CONC 32.8 g/dl (32.0-36.5); MEAN CORPUSCULAR VOLUME 87.6 fl (80.0-96.0); MONO # 0.8 10^3/uL (0.0-0.8); MONO % 6.1 % (2.0-8.0); NEUTROPHILS # 4.7 10^3/uL (1.5-8.5); NEUTROPHILS % 35.1 % (36.0-66.0); PLATELET COUNT, AUTOMATED 248 10^3/uL (150-450); RED BLOOD COUNT 4.69 10^6/uL (4.00-5.40); WHITE BLOOD COUNT 13.5 10^3/uL (4.0-10.0)
[2024-09-22 11:18] LABS: ALKALINE PHOSPHATASE 113 U/L (35-104); ALT/SGPT 28 U/L (7.0-40); AST/SGOT 23 U/L (<34); BILIRUBIN,TOTAL 0.3 MG/DL (0.3-1.2); BLOOD UREA NITROGEN 24 MG/DL (9-23); CALCIUM LEVEL 9.9 MG/DL (8.3-10.6); CARBON DIOXIDE LEVEL 28 MMOL/L (20-31); CHLORIDE LEVEL 109 MMOL/L (98-107); CREATININE FOR GFR 0.71 MG/DL (0.55-1.30); FREE T4 1.75 NG/DL (0.89-1.76); GLOMERULAR FILTRATION RATE > 90.0 (>45); GLUCOSE, FASTING 114 MG/DL (74-106); POTASSIUM SERUM 4.5 MMOL/L (3.5-5.1); SODIUM LEVEL 145 MMOL/L (136-145); TOTAL PROTEIN 7.2 G/DL (5.7-8.2)
[2024-09-22 11:19] LABS: THYROID STIMULATING HORMONE < 0.010 uIU/ML (0.55-4.78)
[2024-09-23 11:52] LABS: T P ELECTROPHORESIS SO 7.3 g/dL (6.1-8.1)
[2024-09-24 08:37] LABS: ALBUMIN SPEP 4.3 g/dL (3.8-4.8); ALPHA-1-GLOBULINS SO 0.2 g/dL (0.2-0.3); ALPHA-2-GLOBULINS SO 0.6 g/dL (0.5-0.9); BETA 2 GLOBULIN 0.4 g/dL (0.2-0.5); BETA-GLOBULIN SO 0.5 g/dL (0.4-0.6); GAMMA GLOBULINS SO 1.2 g/dL (0.8-1.7)
== END ==
LOC: M SFHCPLAZ 10:08
PROVIDERS: ATTEND Nurse Practitioner Family
DX: D72.829 Elevated white blood cell count, unspecified (principal); E55.9 Vitamin D deficiency, unspecified; E04.1 Nontoxic single thyroid nodule; Z00.00 Encounter for general adult medical examination without abnormal findings

== ENCOUNTER → 2024-09-30 | Outpatient (CLI) | payer MEDICAID, MEDICARE | LOC: M WHC 08:02 | PROVIDERS: ATTEND Nurse Practitioner Family | DX: Z12.31 Encounter for screening mammogram for malignant neoplasm of breast (principal); Z13.820 Encounter for screening for osteoporosis; M85.851 Other specified disorders of bone density and structure, right thigh; M85.852 Other specified disorders of bone density and structure, left thigh; R92.333 Mammographic heterogeneous density, bilateral breasts ==

== ENCOUNTER 2025-01-05 07:44 | Outpatient (RCR) | payer MEDICARE, MEDICAID | END 2025-01-07 | LOC: M PT 07:44 | PROVIDERS: ATTEND Nurse Practitioner Family | DX: M47.16 Other spondylosis with myelopathy, lumbar region (principal); M54.42 Lumbago with sciatica, left side ==

== ENCOUNTER 2025-01-26 10:00 | Outpatient (RCR) | payer MEDICARE, MEDICAID | END 2025-02-07 | LOC: M PT 10:00 | PROVIDERS: ATTEND Nurse Practitioner Family | DX: M47.16 Other spondylosis with myelopathy, lumbar region (principal); M54.42 Lumbago with sciatica, left side ==

== ENCOUNTER → 2025-04-13 | Outpatient (CLI) | payer MEDICARE, MEDICAID ==
[2025-04-13 11:13] LABS: BASO # 0.1 10^3/uL (0.0-0.2); BASO % 0.5 % (0.0-1.0); EOS # 0.3 10^3/uL (0.0-0.5); EOS % 1.7 % (0.0-3.0); LYMPH # 9.8 10^3/uL (1.5-5.0); LYMPH % 63.9 % (24.0-44.0); MONO # 0.7 10^3/uL (0.0-0.8); MONO % 4.4 % (2.0-8.0); NEUTROPHILS # 4.5 10^3/uL (1.5-8.5); NEUTROPHILS % 29.3 % (36.0-66.0); PLATELET COUNT, AUTOMATED 241 10^3/uL (150-450)
[2025-04-13 11:19] LABS: ALT/SGPT 27.0 U/L (7.0-40); AST/SGOT 27.0 U/L (<34); CALCIUM LEVEL 9.5 MG/DL (8.3-10.6); CARBON DIOXIDE LEVEL 28.0 MMOL/L (20-31); CHLORIDE LEVEL 108.0 MMOL/L (98-107); CHOLESTEROL LEVEL 136.0 MG/DL (<200); CHOLESTEROL RISK RATIO 2.61 (<5); CREATININE FOR GFR 0.88 MG/DL (0.55-1.30); GLOMERULAR FILTRATION RATE 70.7 (>39); LDL CHOLESTEROL 68.9 MG/DL (<100); NON-HDL-C 83.9 MG/DL; POTASSIUM SERUM 4.0 MMOL/L (3.5-5.1); SODIUM LEVEL 145.0 MMOL/L (136-145); TRIGLYCERIDES LEVEL 75.0 MG/DL (<150)
[2025-04-13 11:21] LABS: FREE T4 1.21 NG/DL (0.89-1.76); TOTAL 25(OH) VITAMIN D 39.1 NG/ML (20.0-100.0)
[2025-04-13 11:34] LABS: ESTIMATED AVERAGE GLUCOSE 105.0 MG/DL (60-110)
[2025-04-13 12:10] LABS: PTH INTACT 22.1 PG/ML (18.5-88.0)
== END ==
LOC: M PLALAB 07:37
PROVIDERS: ATTEND Nurse Practitioner Family
DX: E55.9 Vitamin D deficiency, unspecified (principal); E04.1 Nontoxic single thyroid nodule; E78.2 Mixed hyperlipidemia